=== PATIENT | female | born 1985 | race Caucasian/White ===

== ENCOUNTER 2018-09-06 06:45 | Day surgery (SDC) | payer BC ==
[2018-09-05 17:00] LABS: Absolute Lymphocytes (CBC) 2.5 K/uL (0.7-4.9); Absolute Monocytes 0.6 K/uL (0.1-1.3); Absolute Neutrophil 6.7 K/uL (1.8-8.0); Basophils % 0.7 % (0-1.3); Hematocrit 43.1 % (36.0-45.0); Lymphocytes % 25.3 % (15.3-44.8); MPV 9.9 fL (7.6-11.3); Monocytes % 5.8 % (3.3-12.3); RBC Red Blood Cell Count 4.41 M/uL (3.86-4.86)
--- OUTSIDE RECORDS SUMMARY | 2018-09-06 06:49 | XMS REPORT ---
:1985 [facility] Address [address] [place] [address] Dr. Welch [address] [place] [id number] Care Team Providers Name Role Phone Unavailable Unavailable Unavailable Problems This patient has no known problems. Allergies, Adverse Reactions, Alerts This patient has no known allergies or adverse reactions. Medications This patient has no known medications.
[2018-09-06] MEDS ORDERED: CEFAZOLIN/SWI 1gm 1 GM/10 ML SYR ONE (07:21)
[2018-09-06] MEDS ORDERED: Ringers Lactate 1,000 ML IV ONE (07:21)
[2018-09-06] MEDS ORDERED: MIDAZOLAM HCL 2 MG/2 ML INJ ONE (07:44)
[2018-09-06] MEDS ORDERED: FENTANYL CITR 100 MCG/2 ML ONE (07:44)
[2018-09-06] MEDS ORDERED: LIDOCAINE 2% MPF 5 ML VIAL ONE (07:44)
[2018-09-06] MEDS ORDERED: PROPOFOL 200 MG/20 ML VIAL IV ONE (07:44)
[2018-09-06] MEDS ORDERED: BUPIVACAINE 0.5% PF 10 ML VIAL ONE (07:53)
[2018-09-06] MEDS ORDERED: KETOROLAC 30 MG/ML INJ ONE (08:45)
--- NOTE | 2018-09-06 20:23 | OP ---
Date of Procedure: 09/06/2018 Surgeon: Durga Arteaga MD Preoperative Diagnosis: Left posterior shoulder inflamed sebaceous cyst. Postoperative Diagnosis: Left posterior shoulder inflamed sebaceous cyst. Procedure: Wide excision of left posterior shoulder mass, 6 x 3 cm, with layered closure. Estimated Blood Loss: Minimal. Specimen: Sebaceous cyst and culture and sensitivity. Findings: As above. Anesthesia: General. Complications: None. Disposition: The patient tolerated the procedure in stable condition and taken to Recovery in good g eneral condition. Procedure In Detail: The patient was brought to the OR and placed in supine position. General anest hesia was begun. The patient was placed in the right lateral position, prepped and draped in usual s terile fashion. Marcaine 0.5% was infiltrated locally. A 15-blade was used to make a 6 x 3 cm incis ion to excise this entire sebaceous cyst. The entire wall was excised sent to Pathology as specimen. There was minimal discharge from the cyst itself. Cultures were done. Wound was thoroughly irriga uday. Effluent was clear. There were bleeding was controlled with cautery. Then, 2-0 chromic was us ed to approximate the deep subcutaneous tissue, and 2-0 nylon was used to close the skin sparingly le aving spaces in between for drainage purposes. Sterile dressing was applied. The patient was awakened and taken to Recovery in good gene ral condition. ANYA/PRACHI Voice ID: [id number] Report ID: [id number]
--- NOTE | 2018-09-06 20:24 | DS ---
Date of Discharge: 09/06/2018 Discharge Note: The patient will go to Day Surgery and home when stable. Disposition: Home. Condition: Stable. Discharge Instructions: Resume home medications and diet. Activity as tolerated. Remove outer dres sing in 2 days. Shower. Keep wound clean and dry. Follow up in my office in 1 week. Call for appo intment. Tylenol No. 3 one tablet p.o. q.4 p.r.n. pain. Antibiotics as ordered. ANYA/PRACHI Voice ID: [id number] Report ID: [id number]
== END 2018-09-06 10:05 | disposition home or self-care (01) ==
LOC: OR 06:45
PROVIDERS: ATTEND Surgery
PROC: 0JBF0ZX Excision of Left Upper Arm Subcutaneous Tissue and Fascia, Open Approach, Diagnostic (ICD-10-PCS; principal; 2018-09-06 09:30)
DX: L72.0 Epidermal cyst (principal); I10 Essential (primary) hypertension; Z79.899 Other long term (current) drug therapy; F17.210 Nicotine dependence, cigarettes, uncomplicated
CPT/HCPCS: 36415; 84703; 85025; 87070; 87205; 88304; 88305; J0690; J2250; J2704; J3010